=== PATIENT | female | born 1990 | race Two or more races ===

== ENCOUNTER 2023-12-04 13:10 | Emergency (ER) | payer OTHER ==
[~2023-12-04] VITALS: Ht 175.3 cm; Wt 77.1 kg
[2023-12-04 14:48] LABS: PH,URINE 5.5 (5.0-8.0); URINE APPEARANCE Cloudy; URINE BILIRRUBIN Small (NEGATIVE); URINE BLOOD Large; URINE COLOR Orange; URINE GLUCOSE Negative (NEGATIVE); URINE LEUKOCYTE Small; URINE NITRATE Negative
[2023-12-04 14:49] LABS: URINE BACTERIA 1980.6 uL (0.0-1933); URINE EPITHELIAL CELLS 18.8 uL (0.0-38.8); URINE RBC 8369.4 uL (0.0-20.8); URINE WBC 242.2 uL (0.0-23.2)
[2023-12-04 15:05] LABS: HEMATOCRIT 37.2 % (36.0-45.00); HEMOGLOBIN 12.5 g/dL (12.0-15.00); MEAN CELL VOLUME 86.1 fL (80.00-100.00); MEAN CORPUSCULAR HEMOGLOBIN 28.9 pg (27.00-32.0); MEAN CORPUSCULAR HGB CONC 33.6 g/dl (32.0-36.0); PLATELET COUNT 207 K/uL (150-450); RED BLOOD COUNT 4.33 M/uL (4.00-6.00); RED CELL DISTRIBUTION WIDTH 14.7 % (11.5-14.5)
[2023-12-04 15:12] LABS: URINE PROTEIN 100 (NEGATIVE)
[2023-12-04 15:16] LABS: CALCIUM 9.5 mg/dL (8.5-10.1); CREATININE SERUM 0.66 mg/dL (0.55-1.02); GFR 103.14; POTASSIUM 3.8 mEq/L (3.5-5.1)
[2023-12-04 15:18] LABS: INR 1.09; PARTIAL THROMBOPLASTIN TIME 29.6 SECONDS (22.0-34.0); PROTHROMBIN TIME 11.4 SECONDS (9.0-11.5)
[2023-12-04] MEDS ORDERED: DUI500 PO (16:33)
== END 2023-12-04 16:50 | disposition home or self-care (01) ==
LOC: ER 13:11
PROVIDERS: Nurse Practitioner Family
DX: O20.9 Hemorrhage in early pregnancy, unspecified (principal); Z3A.01 Less than 8 weeks gestation of pregnancy

== ENCOUNTER 2024-11-22 15:04 | Emergency (ER) | payer OTHER ==
[~2024-11-22] VITALS: Ht 175.3 cm; Wt 64.9 kg
[~2024-11-22 15:04] MED LIST: DUI500 PO
[2024-11-22] MEDS ORDERED: PRENATA CHEWAB1 EACH PO (15:50)
[2024-11-22] MEDS ORDERED: FAMOTIDINE/PF 20 MG in 0.9 % SODIUM CHLORIDE 8 ML IV PUSH STA (16:22)
[2024-11-22] MEDS ORDERED: 0.9 % SODIUM CHLORIDE 1,000 ML IV SCH (16:30)
[2024-11-22] MEDS ORDERED: ONDANSETRON HCL 2 MG/ML VIAL IV ONE (16:30)
[2024-11-22] MEDS ORDERED: FAMOTIDINE/PF 20 MG/2 ML VIAL ONE (16:33)
[2024-11-22] MEDS ORDERED: ONDANSETRON HCL 2 MG/ML VIAL ONE (16:33)
[2024-11-22 16:57] LABS: HEMATOCRIT 40.6 % (36.0-45.00); HEMOGLOBIN 13.2 g/dL (12.0-15.00); MEAN CELL VOLUME 87.2 fL (80.00-100.00); MEAN CORPUSCULAR HEMOGLOBIN 28.4 pg (27.00-32.0); MEAN CORPUSCULAR HGB CONC 32.5 g/dl (32.0-36.0); PLATELET COUNT 296 K/uL (150-450); RED BLOOD COUNT 4.65 M/uL (4.00-6.00)
[2024-11-22 17:11] LABS: PH,URINE 5.5 (5.0-8.0); URINE APPEARANCE Cloudy; URINE BILIRRUBIN Negative (NEGATIVE); URINE BLOOD Negative; URINE COLOR Yellow; URINE GLUCOSE Negative (NEGATIVE); URINE LEUKOCYTE Moderate; URINE NITRATE Negative; URINE PROTEIN Trace (NEGATIVE); URINE UROBILINOGEN 0.2 E.U./dl
[2024-11-22 17:14] LABS: URINE BACTERIA 5047.5 uL (0.0-1933); URINE CAST 0.14 uL (0.0-1.40); URINE EPITHELIAL CELLS 93.8 uL (0.0-38.8); URINE KETONE 40 (NEGATIVE); URINE RBC 7.3 uL (0.0-20.8); URINE WBC 240.3 uL (0.0-23.2)
[2024-11-22 17:40] LABS: ALBUMIN 3.6 gm/dL (3.4-5.0); BILIRUBIN TOTAL 0.6 mg/dL (0.3-1.2); CALCIUM 9.2 mg/dL (8.5-10.1); CREATININE SERUM 0.61 mg/dL (0.55-1.02); GFR 112.27; GLOBULINA 4.5 G/DL (2.4-3.5); POTASSIUM 3.85 mEq/L (3.5-5.1); TOTAL PROTEIN 8.1 gm/dL (6.4-8.2)
[2024-11-22] MEDS ORDERED: METOCLOPRAMIDE HCL 10 MG in DEXTROSE 5 % IN WATER 50 ML IV ONE (18:45)
[2024-11-22] MEDS ORDERED: METOCLOPRAMIDE HCL 5 MG/ML VIAL ONE (18:50)
[2024-11-22] MEDS ORDERED: ONDANSETRON ODT8 MG PO (20:30)
[2024-11-22] MEDS ORDERED: PEPCID AC20 MG PO (20:30)
== END 2024-11-22 20:35 | disposition home or self-care (01) ==
LOC: ER 15:07
PROVIDERS: General Practice
DX: O21.1 Hyperemesis gravidarum with metabolic disturbance (principal); Z3A.08 8 weeks gestation of pregnancy

== ENCOUNTER 2025-03-19 18:41 | Outpatient (CLI) | payer OTHER ==
[2025-03-19 18:02] VITALS: BP 98/62
[~2025-03-19 18:41] MED LIST changes: -PRENATAL CAPLE1 EAC1 PO; -ZOFRAN8 MG PO
[2025-03-19] MEDS ORDERED: RINGERS SOLUTION,LACTATED 1,000 ML IV SCH (19:15)
[2025-03-19 19:21] LABS: BASO % 0.1 % (0.1-1.2); EOS # 0.04 (0.04-0.54); EOS % 0.4 % (0.7-7.0); HEMATOCRIT 29.7 % (34.1-44.9); LYMPH # 1.92 (1.18-3.74); LYMPH % 17.8 % (19.3-53.1); MEAN CORPUSCULAR HEMOGLOBIN 29.4 pg (25.6-32.2); MONO # 0.69 (0.24-0.82); MONO % 6.4 % (4.7-12.5); NEUT # 8.09 (1.56-6.13); NEUT % 74.8 % (34.0-71.1); PLATELET COUNT 253 K/uL (163-369); RED CELL DISTRIBUTION WIDTH 12.6 % (11.6-14.4)
[2025-03-19 19:27] LABS: URINE APPEARANCE Clear; URINE BILIRRUBIN Negative (NEGATIVE); URINE COLOR Yellow; URINE GLUCOSE Negative (NEGATIVE); URINE KETONE Trace (NEGATIVE); URINE LEUKOCYTE Trace; URINE NITRATE Negative; URINE PROTEIN Negative (NEGATIVE)
[2025-03-19 19:31] LABS: URINE BACTERIA 39.1 uL (0.0-1933); URINE EPITHELIAL CELLS 4.7 uL (0.0-38.8); URINE WBC 7.7 uL (0.0-23.2)
[2025-03-19] MEDS ORDERED: PRENATAL CAPLE1 EAC1 PO (19:38)
[2025-03-19] MEDS ORDERED: ZOFRAN8 MG PO (19:38)
[2025-03-19 19:48] LABS: ALBUMIN 2.8 gm/dL (3.4-5.0); BILIRUBIN TOTAL 0.39 mg/dL (0.3-1.2); CALCIUM 8.8 mg/dL (8.5-10.1); CREATININE SERUM 0.52 mg/dL (0.55-1.02); GFR 134.98; GLOBULINA 3.7 G/DL (2.4-3.5); POTASSIUM 3.98 mEq/L (3.5-5.1); TOTAL PROTEIN 6.5 gm/dL (6.4-8.2)
[2025-03-19 19:57] LABS: URINE BLOOD TRACE
[2025-03-19] MEDS ORDERED: TERCONAZOLE 20 GM TUBE VAG SCH (21:00)
[2025-03-19] MEDS ORDERED: CEFTRIAXONE SODIUM 1,000 MG VIAL IV ONE (22:30)
[2025-03-19 23:10] VITALS: BP 90/60
[2025-03-20 03:14] VITALS: BP 94/57
[2025-03-20] MEDS ORDERED: ONDANSETRON HCL 2 MG/ML VIAL ONE (06:03)
[2025-03-20 06:10] VITALS: BP 89/62; O2SAT 97
[2025-03-20] MEDS ORDERED: ONDANSETRON HCL 2 MG/ML VIAL IV PRN (06:15)
[2025-03-20] MEDS ORDERED: CYCLOBENZAPRINE HCL 5 MG TABLET PO ONE (06:15)
[2025-03-20 12:07] VITALS: BP 99/66
== END 2025-03-20 12:54 | disposition home or self-care (01) ==
LOC: OBS/DEL 18:41
PROVIDERS: ATTEND Obstetrics & Gynecology Gynecology
DX: O26.892 Other specified pregnancy related conditions, second trimester (principal); Z3A.24 24 weeks gestation of pregnancy

== ENCOUNTER → 2025-03-19 | Emergency (ER) | payer OTHER ==
[~2025-03-19] MED LIST changes: +ONDANSETRON ODT8 MG PO; +PEPCID AC20 MG PO; +PRENATA CHEWAB1 EACH PO; +PRENATAL CAPLE1 EAC1 PO; +ZOFRAN8 MG PO
== END | disposition left against medical advice (07) ==
LOC: ER 16:32
DX: Z53.21 Procedure and treatment not carried out due to patient leaving prior to being seen by health care provider (principal)

== ENCOUNTER 2025-04-18 03:11 | Emergency (ER) | payer OTHER ==
[~2025-04-18] VITALS: Ht 175.3 cm; Wt 74.4 kg
[~2025-04-18 03:11] MED LIST changes: +PRENATAL CAPLE1 EAC1 PO; +ZOFRAN8 MG PO
[2025-04-18] MEDS ORDERED: METOCLOPRAMIDE HCL 5 MG/ML VIAL IM STA (04:30)
[2025-04-18] MEDS ORDERED: 0.9 % SODIUM CHLORIDE 1,000 ML IV STA (04:32)
[2025-04-18] MEDS ORDERED: ONDANSETRON HCL 2 MG/ML VIAL IV STA (04:33)
[2025-04-18] MEDS ORDERED: FAMOtidine 10 MG/ML (4ML VIAL) IV PUSH STA (04:33)
[2025-04-18] MEDS ORDERED: METOCLOPRAMIDE HCL 5 MG/ML VIAL ONE (05:06)
[2025-04-18] MEDS ORDERED: ONDANSETRON HCL 2 MG/ML VIAL ONE (05:06)
[2025-04-18] MEDS ORDERED: FAMOTIDINE/PF 20 MG/2 ML VIAL ONE (05:07)
[2025-04-18 06:27] LABS: BASO % 0.1 % (0.1-1.2); EOS # 0.00 (0.04-0.54); EOS % 0.0 % (0.7-7.0); LYMPH # 0.36 (1.18-3.74); LYMPH % 3.5 % (19.3-53.1); MEAN PLATELET VOLUME 10.10 fl (9.4-12.4); MONO # 0.14 (0.24-0.82); MONO % 1.4 % (4.7-12.5); NEUT # 9.75 (1.56-6.13); NEUT % 94.6 % (34.0-71.1); RED CELL DISTRIBUTION WIDTH 12.4 % (11.6-14.4)
[2025-04-18 07:17] LABS: ALT/SGPT 11.0 U/L (12-78); AST/SGOT 12.0 U/L (15-37); BILIRUBIN TOTAL 0.5 mg/dL (0.3-1.2); BUN CREA RATIO 15.0 (7.0-25.0); CREATININE SERUM 0.46 mg/dL (0.55-1.02); GFR 155.5; GLOBULINA 3.5 G/DL (2.4-3.5); GLUCOSE FASTING 85.0 mg/dL (65-100); OSMOLALITY SERUM 275.0 MOSM/KG (275-295)
[2025-04-18 07:22] LABS: HCG QUANTITATIVE 11475.0 mUI/mL (1-3)
[2025-04-18 08:05] VITALS: BP 95/60; O2SAT 98
== END 2025-04-18 08:07 | disposition home or self-care (01) ==
LOC: ER 03:11
DX: K52.9 Noninfective gastroenteritis and colitis, unspecified (principal)

== ENCOUNTER 2025-06-13 12:14 | Outpatient (CLI) | payer OTHER ==
[~2025-06-13] VITALS: Ht 175.3 cm; Wt 82.6 kg
[2025-06-13 11:33] VITALS: BP 107/70
[2025-06-13] MEDS ORDERED: RINGERS SOLUTION,LACTATED 1,000 ML IV SCH (12:30)
[2025-06-13 15:07] VITALS: BP 105/67
[2025-06-13 19:37] VITALS: BP 115/77
[2025-06-13 23:17] VITALS: BP 107/62
[2025-06-14 03:49] VITALS: BP 105/71
[2025-06-14 07:15] VITALS: BP 109/69
[2025-06-14 11:08] VITALS: BP 117/70
== END 2025-06-14 12:40 | disposition home or self-care (01) ==
LOC: OBS/DEL 12:14
PROVIDERS: ATTEND Obstetrics & Gynecology Gynecology
DX: O26.893 Other specified pregnancy related conditions, third trimester (principal); R19.7 Diarrhea, unspecified; R10.2 Pelvic and perineal pain; Z3A.37 37 weeks gestation of pregnancy

== ENCOUNTER 2025-06-19 10:00 | Inpatient (IN) | payer OTHER ==
[~2025-06-19] VITALS: Ht 175.3 cm; Wt 83.0 kg
[2025-06-19 11:59] LABS: BASO % 0.1 % (0.1-1.2); EOS # 0.01 (0.04-0.54); EOS % 0.1 % (0.7-7.0); LYMPH # 1.16 (1.18-3.74); LYMPH % 14.8 % (19.3-53.1); MEAN PLATELET VOLUME 10.20 fl (9.4-12.4); MONO # 0.32 (0.24-0.82); MONO % 4.1 % (4.7-12.5); NEUT # 6.29 (1.56-6.13); NEUT % 80.0 % (34.0-71.1)
[2025-06-19 12:06] LABS: RED CELL DISTRIBUTION WIDTH 19.6 % (11.6-14.4)
[2025-06-19 12:41] LABS: INR 0.96
[2025-06-19 12:56] LABS: ALT/SGPT 7.0 U/L (12-78); AST/SGOT 11.0 U/L (15-37); BILIRUBIN TOTAL 0.45 mg/dL (0.3-1.2); BUN CREA RATIO 6.0 (7.0-25.0); CREATININE SERUM 0.49 mg/dL (0.55-1.02); GFR 143.72; GLOBULINA 3.8 G/DL (2.4-3.5); GLUCOSE FASTING 79.0 mg/dL (65-100); OSMOLALITY SERUM 277.0 MOSM/KG (275-295)
[2025-06-19 13:00] LABS: COVID-19 AG NEGATIVE (NEGATIVE)
[2025-06-19] MEDS ORDERED: PRENATABS RX T1 EACH PO (14:55)
[2025-06-25 07:59] VITALS: BP 111/73
[2025-06-25] MEDS ORDERED: CEFAZOLIN SODIUM 1,000 MG VIAL ONE (10:27)
[2025-06-25] MEDS ORDERED: CITRIC ACID/SODIUM CITRATE 30 ML BLIST.PACK PO ONE (10:27)
[2025-06-25] MEDS ORDERED: ERYTHROMYCIN BASE OPHT 1GM EACH TUBE OP ONE (11:08)
[2025-06-25] MEDS ORDERED: ONDANSETRON HCL 2 MG/ML VIAL IV ONE (13:30)
[2025-06-25] MEDS ORDERED: ONDANSETRON HCL 2 MG/ML VIAL ONE (13:30)
[2025-06-25] MEDS ORDERED: RINGERS SOLUTION,LACTATED 1,000 ML IV SCH (14:30)
[2025-06-25] MEDS ORDERED: OXYTOCIN 1,000 ML IV ONE (14:30)
[2025-06-25] MEDS ORDERED: MORPHINE SULFATE 4 MG/ML CARTRIDGE IV PRN (14:30)
[2025-06-25] MEDS ORDERED: GABAPENTIN 300 MG CAPSULE PO SCH (17:00)
[2025-06-25] MEDS ORDERED: SIMETHICONE 125 MG CAPSULE PO SCH (17:00)
[2025-06-25] MEDS ORDERED: OXYTOCIN 10 UNITS/ML VIAL ONE (17:10)
[2025-06-25 17:30] VITALS: BP 122/78
[2025-06-25] MEDS ORDERED: ACETAMINOPHEN 500 MG GEL..CAP PO SCH (18:00)
[2025-06-25] MEDS ORDERED: KETOROLAC TROMETHAMINE 30 MG VIAL IV SCH (18:00)
[2025-06-25] MEDS ORDERED: ONDANSETRON HCL 2 MG/ML VIAL IV SCH (18:00)
[2025-06-26 00:31] VITALS: BP 115/70
[2025-06-26 04:00] VITALS: BP 112/71
[2025-06-26 06:21] LABS: BASO % 0.2 % (0.1-1.2); EOS # 0.05 (0.04-0.54); EOS % 0.5 % (0.7-7.0); LYMPH # 0.71 (1.18-3.74); LYMPH % 6.4 % (19.3-53.1); MEAN PLATELET VOLUME 10.70 fl (9.4-12.4); MONO # 0.46 (0.24-0.82); MONO % 4.1 % (4.7-12.5); NEUT # 9.79 (1.56-6.13); NEUT % 88.3 % (34.0-71.1); RED CELL DISTRIBUTION WIDTH 19.7 % (11.6-14.4)
[2025-06-26] MEDS ORDERED: KETOROLAC TROMETHAMINE 10 MG TABLET PO SCH (08:00)
[2025-06-26] MEDS ORDERED: OxyCODONE HCL 5 MG TABLET (ROXICODONE) PO PRN (08:00)
[2025-06-26 08:29] VITALS: BP 99/64
[2025-06-26] MEDS ORDERED: DOCUSATE SODIUM 100MG CAP PO SCH (09:00)
[2025-06-26] MEDS ORDERED: IRON FUM,PS/FOLIC/BCOMP,C NO.9 1 CAP CAPSULE PO SCH (09:00)
[2025-06-26] MEDS ORDERED: SOD FERRIC GLUC COMPLX/SUCROSE 125 MG in 0.9 % SODIUM CHLORIDE 100 ML IV SCH (09:00)
[2025-06-26 18:42] VITALS: BP 102/64
[2025-06-27] VITALS: BP 109/71
[2025-06-27 08:21] VITALS: BP 109/73
== END 2025-06-27 12:47 | disposition home or self-care (01) | DRG 785 ==
LOC: OB/GYN 06-25 08:00 → O/R 06-25 08:00 → LDR 06-25 10:00 → OB/GYN 06-25 15:26
PROVIDERS: ADMIT Obstetrics & Gynecology; ATTEND Obstetrics & Gynecology
PROC: 0UB70ZZ Excision of Bilateral Fallopian Tubes, Open Approach (ICD-10-PCS; 2025-06-25)
PROC: 4A1HXCZ Monitoring of Products of Conception, Cardiac Rate, External Approach (ICD-10-PCS; 2025-06-25)
PROC: 10D00Z1 Extraction of Products of Conception, Low, Open Approach (ICD-10-PCS; principal; 2025-06-25 14:00)
DX: O34.211 Maternal care for low transverse scar from previous cesarean delivery (principal); Z30.2 Encounter for sterilization; Z3A.38 38 weeks gestation of pregnancy; Z37.0 Single live birth